=== PATIENT | female | born 1985 | race Caucasian/White ===

== ENCOUNTER 2017-03-10 18:36 | Emergency (ER) | payer OTHER ==
[2017-06-19] MEDS ORDERED: TOPIRAMATE50 MG PO (06:46)
[2017-06-19] MEDS ORDERED: CETIRIZINE HCL10 MG PO (06:47)
[2017-06-19] MEDS ORDERED: DICLOFENAC SODI75 MG PO (06:48)
[2017-06-19] MEDS ORDERED: SUMATRIPTAN SU100 MG PO (06:48)
[2017-06-19] MEDS ORDERED: METHOCARBAMOL750 MG PO (06:49)
[2017-06-19] MEDS ORDERED: LIPITOR TAB 2020 MG PO (06:49)
[2017-06-19] MEDS ORDERED: LABETALOL HCL300 MG PO (06:49)
[2017-06-19] MEDS ORDERED: ZOFRAN4 MG PO (06:51)
[2017-06-19] MEDS ORDERED: HYDROCHLOROTHIA25 MG PO (06:52)
[2017-06-19] MEDS ORDERED: VITAMIN D10000 UNIT PO (06:52)
[2017-06-19] MEDS ORDERED: ASPIRIN81 MG PO (06:53)
[2017-06-19] MEDS ORDERED: DICYCLOMINE HCL10 MG PO (06:54)
[2017-06-19] MEDS ORDERED: OMEPRAZOLE20 M1 PO (06:54)
[2017-06-19] MEDS ORDERED: NORCO 7.5-3251 EACH PO (10:55)
== END 2017-03-10 19:29 | disposition home or self-care (01) ==
LOC: ER1 18:36
DX: S93.492A Sprain of other ligament of left ankle, initial encounter (principal); Z88.0 Allergy status to penicillin; X50.1XXA Overexertion from prolonged static or awkward postures, initial encounter
CPT/HCPCS: 73590; 73610; 73630; 99283

== ENCOUNTER → 2017-06-06 | Outpatient (CLI) | payer OTHER | LOC: KOH-I 08:07 | DX: R10.9 Unspecified abdominal pain (principal); K80.20 Calculus of gallbladder without cholecystitis without obstruction; K76.0 Fatty (change of) liver, not elsewhere classified; R16.1 Splenomegaly, not elsewhere classified | CPT/HCPCS: 76700 ==

== ENCOUNTER 2020-10-20 14:01 | Emergency (ER) | payer BC, OTHER ==
[~2020-10-20 14:01] MED LIST: ASPIRIN81 MG PO; CETIRIZINE HCL10 MG PO; DICLOFENAC SODI75 MG PO; DICYCLOMINE HCL10 MG PO; FLORASTOR250 MG PO; HYDROCHLOROTHIA25 MG PO; LABETALOL HCL300 MG PO; LIPITOR TAB 2020 MG PO; METHOCARBAMOL750 MG PO; MOBIC15 MG PO; NORCO 7.5-3251 EACH PO; OMEPRAZOLE20 M1 PO; SUMATRIPTAN SU100 MG PO; TOPIRAMATE50 MG PO; VITAMIN D10000 UNIT PO; ZOFRAN ODT 4 MG4 MG SL; ZOFRAN4 MG PO
[2021-01-19] MEDS ORDERED: ZOLOFT100 MG PO (10:13)
[2021-01-19] MEDS ORDERED: TOPAMAX200 MG PO (10:13)
[2021-01-19] MEDS ORDERED: BUSPIRONE HCL5 MG PO (10:14)
[2021-01-19] MEDS ORDERED: TRAZODONE HCL100 MG PO (10:14)
[2021-01-19] MEDS ORDERED: FIORICET PO (10:15)
[2021-01-31] MEDS ORDERED: NATURAL FIBER0.52 GM PO (11:46)
[2021-01-31] MEDS ORDERED: FISH OIL PEARL1 EAC1 PO (11:47)
[2021-01-31] MEDS ORDERED: COLACE100 MG PO (13:42)
[2021-01-31] MEDS ORDERED: HYDROCODON-ACE1 EAC4 PO (13:42)
[2021-01-31] MEDS ORDERED: IBUPROFEN800 MG PO (13:42)
== END 2020-10-20 16:00 | disposition home or self-care (01) ==
LOC: ER1 14:01
DX: R10.9 Unspecified abdominal pain (principal); R11.0 Nausea; R63.0 Anorexia; I10 Essential (primary) hypertension; Z88.0 Allergy status to penicillin; Z90.49 Acquired absence of other specified parts of digestive tract; Z53.20 Procedure and treatment not carried out because of patient's decision for unspecified reasons
CPT/HCPCS: 99283

== ENCOUNTER → 2020-12-15 | Outpatient (CLI) | payer BC, OTHER ==
[~2020-12-15] MED LIST changes: +BUSPIRONE HCL5 MG PO; +COLACE100 MG PO; +CYCLOBENZAPRINE10 MG PO; +FIORICET PO; +FISH OIL PEARL1 EAC1 PO; +HYDROCODON-ACE1 EAC4 PO; +IBUPROFEN800 MG PO; +NATURAL FIBER0.52 GM PO; +TOPAMAX200 MG PO; +TRAZODONE HCL100 MG PO; +ZOLOFT100 MG PO
== END ==
LOC: KOH-I 11:08
DX: R06.00 Dyspnea, unspecified (principal)
CPT/HCPCS: 71046

== ENCOUNTER 2020-12-30 02:38 | Emergency (ER) | payer BC, OTHER ==
[~2020-12-30 02:38] MED LIST changes: -BUSPIRONE HCL5 MG PO; -COLACE100 MG PO; -CYCLOBENZAPRINE10 MG PO; -FIORICET PO; -FISH OIL PEARL1 EAC1 PO; -HYDROCODON-ACE1 EAC4 PO; -IBUPROFEN800 MG PO; -NATURAL FIBER0.52 GM PO; -TOPAMAX200 MG PO; -TRAZODONE HCL100 MG PO; -ZOLOFT100 MG PO
[2020-12-30 08:31] LABS: HEMOGLOBIN 12.8 gm/dl (12.3-15.3); RED BLOOD COUNT 5.14 M/UL (4.00-5.10); WHITE BLOOD COUNT 6.6 K/UL (4.5-11.0)
[2020-12-30 08:48] LABS: BUN/CREATININE RATIO 16 (0-10)
[2020-12-30] MEDS ORDERED: CYCLOBENZAPRINE10 MG PO (09:07)
[2021-01-19] MEDS ORDERED: ZOLOFT100 MG PO (10:13)
[2021-01-19] MEDS ORDERED: TOPAMAX200 MG PO (10:13)
[2021-01-19] MEDS ORDERED: TRAZODONE HCL100 MG PO (10:14)
[2021-01-19] MEDS ORDERED: BUSPIRONE HCL5 MG PO (10:14)
[2021-01-19] MEDS ORDERED: FIORICET PO (10:15)
[2021-01-31] MEDS ORDERED: NATURAL FIBER0.52 GM PO (11:46)
[2021-01-31] MEDS ORDERED: FISH OIL PEARL1 EAC1 PO (11:47)
[2021-01-31] MEDS ORDERED: HYDROCODON-ACE1 EAC4 PO (13:42)
[2021-01-31] MEDS ORDERED: IBUPROFEN800 MG PO (13:42)
[2021-01-31] MEDS ORDERED: COLACE100 MG PO (13:42)
== END 2020-12-30 09:24 | disposition home or self-care (01) ==
LOC: ER1 02:38
PROVIDERS: Student in an Organized Health Care Education/Training Program
DX: M54.5 Low back pain (principal); I10 Essential (primary) hypertension; M79.10 Myalgia, unspecified site; Z90.49 Acquired absence of other specified parts of digestive tract; Z88.0 Allergy status to penicillin; Z79.899 Other long term (current) drug therapy
CPT/HCPCS: 80053; 81001; 84703; 85025; 87086; 99283

== ENCOUNTER → 2021-01-16 | Outpatient (CLI) | payer BC, OTHER ==
[~2021-01-16] MED LIST changes: +BUSPIRONE HCL5 MG PO; +COLACE100 MG PO; +CYCLOBENZAPRINE10 MG PO; +FIORICET PO; +FISH OIL PEARL1 EAC1 PO; +HYDROCODON-ACE1 EAC4 PO; +IBUPROFEN800 MG PO; +NATURAL FIBER0.52 GM PO; +TOPAMAX200 MG PO; +TRAZODONE HCL100 MG PO; +ZOLOFT100 MG PO
== END ==
LOC: KOH-I 01-12 16:00
DX: M54.5 Low back pain (principal); N20.0 Calculus of kidney
CPT/HCPCS: 74176

== ENCOUNTER → 2021-01-31 | Day surgery (SDC) | payer BC, OTHER ==
[~2021-01-31] VITALS: Ht 177.8 cm; Wt 133.8 kg
[2021-01-31 11:44] LABS: HEMOGLOBIN 13.4 gm/dl (12.3-15.3); RED BLOOD COUNT 5.3 M/UL (4.00-5.10); WHITE BLOOD COUNT 7.4 K/UL (4.5-11.0)
[2021-01-31 12:26] LABS: BUN/CREATININE RATIO 13 (0-10)
== END | disposition home or self-care (01) ==
LOC: OR 08:45
PROVIDERS: Obstetrics & Gynecology
DX: N72 Inflammatory disease of cervix uteri (principal); I10 Essential (primary) hypertension; F41.1 Generalized anxiety disorder; E78.5 Hyperlipidemia, unspecified; G43.909 Migraine, unspecified, not intractable, without status migrainosus; G47.30 Sleep apnea, unspecified; K21.9 Gastro-esophageal reflux disease without esophagitis; F32.9 Major depressive disorder, single episode, unspecified; Z87.891 Personal history of nicotine dependence; Z86.16 Personal history of COVID-19; Z88.0 Allergy status to penicillin; Z88.2 Allergy status to sulfonamides; Z79.899 Other long term (current) drug therapy
CPT/HCPCS: 36415; 80048; 81001; 84703; 85025; J1100; J1885; J2250; J2405; J2704; J3010; J7030; J7120